=== PATIENT | female | born 2000 | race African-American/Black ===

== ENCOUNTER → 2018-01-02 | Outpatient (CLI) | payer OTHER ==
--- NOTE | 2018-01-02 11:53 | RADRPT ---
EXAM DATE/TIME: 01/02/2018 10:55 [place] COMPARISON: No previous studies available for comparison. INDICATIONS : Cough and difficulty breathing. MEDICAL HISTORY : None. SURGICAL HISTORY : None. ENCOUNTER: Initial ACUITY: 1 day PAIN SCORE: 6/10 LOCATION: Bilateral chest FINDINGS: PA and lateral views of the chest demonstrate the lungs to be symmetrically aerated without evidence of mass, infiltrate or effusion. The cardiomediastinal contours are unremarkable. Osseous structure s are intact. CONCLUSION: No acute disease. Kiel Salazar MD on January 02, 2018 at 11:50 Board Certified Radiologist. This report was verified electronically.
== END ==
LOC: HRSP 08:51
PROVIDERS: ATTEND Internal Medicine Sleep Medicine
DX: R06.89 Other abnormalities of breathing (principal); R06.09 Other forms of dyspnea
CPT/HCPCS: 71046; 94060; 94726; 94729